=== PATIENT | female | born 1990 | race Caucasian/White ===

== ENCOUNTER 2019-12-03 09:32 | Day surgery (SDC) | payer BC ==
[~2019-12-03 09:32] MED LIST: Midazolam 1 MG/ML 2 ML SDV ONE; Propofol 200 MG/20 ML SDV ONE; fentaNYL 100 MCG/2 ML SDV ONE
[2019-12-03] MEDS ORDERED: Dextrose 5%-Lactated Ringers 1,000 ML IV SCH (10:45)
[2019-12-03] MEDS ORDERED: Glycopyrrolate 0.2 MG/ML 2 ML SDV IVPUSH ONE (11:00)
[2019-12-03 12:33] VITALS: BP 97/65; PULSE 89
--- NOTE | 2019-12-10 10:10 | OR ---
DATE OF PROCEDURE: 12/03/2019 SURGEON: Claude Restrepo MD PREOPERATIVE DIAGNOSIS: Probable gastroesophageal reflux disease along with upper abdominal discomfort. POSTOPERATIVE DIAGNOSES: 1. Large hiatal hernia (5 cm) with ulcerated gastroesophageal reflux disease. 2. Mild antral gastritis. OPERATIVE PROCEDURES: Esophagogastroduodenoscopy with: 1. Biopsies of esophagogastric junction for histologic evaluation. 2. Biopsies of antrum for CLOtest. ANESTHESIA: IV sedation. INDICATIONS FOR PROCEDURE: This is a 29-year-old female presenting with worsening reflux- type symptoms along with some postprandial upper abdominal pain. Plan is to proceed with upper GI endoscopy with biopsies as indicated. Potential risks including bleeding and perforation were discussed, and the patient wishes to proceed. DETAILS OF PROCEDURE: The patient was taken to the operating room, and after being placed in a left lateral decubitus position, IV sedation was administered, after which the upper GI endoscope was passed orally through the length of the esophagus and into the stomach with retroflexion view of the fundus, and thereafter through the pyloric channel and into the proximal duodenum. Findings included normal hypopharynx, larynx, upper esophageal sphincter, esophageal body. At the EG junction, there was quite a large hiatal hernia measuring around 5 cm with 3 linear erosions extending upward above the esophagogastric junction line. These are covered presently with some fibrinous exudate. No bleeding was seen. Otherwise, there was no stricturing or gross evidence of neoplasia. Within the stomach, there was a small amount of retained bile with some patchy redness in the antrum. Pylorus, pyloric channel, and duodenum to the junction of the third and fourth portions were unremarkable. At this point, biopsies were obtained from the antrum and sent for CLOtest for H pylori. Multiple biopsies were then obtained from esophagogastric junction, sent for histologic evaluation. Minimal bleeding from the biopsy sites was seen and the procedure was then concluded. At this point, we will move the patient's omeprazole dose up to 20 mg b.i.d. from a once a day dosing schedule, and we will see her back in the clinic to discuss treatment options. If the reflux symptoms become refractory to medical management, the two general options would be Eve fundoplication or gastric bypass. The latter would probably be preferable given the weight of 242 pounds and relatively poor efficacy both in the short and long-term with a Eve fundoplication in someone who is otherwise morbidly obese. We will see the patient back in clinic to discuss those options. Claude Restrepo MD /[id number]
== END 2019-12-03 12:53 | disposition home or self-care (01) ==
LOC: JP.SDS 09:32
PROVIDERS: ATTEND Surgery
DX: K29.70 Gastritis, unspecified, without bleeding (principal); K25.9 Gastric ulcer, unspecified as acute or chronic, without hemorrhage or perforation; K44.9 Diaphragmatic hernia without obstruction or gangrene; K21.9 Gastro-esophageal reflux disease without esophagitis
CPT/HCPCS: 43239; 87081; J2250; J2704; J3010; J3490; J7121; 88305

== ENCOUNTER 2020-11-25 08:20 | Inpatient (IN) | payer BC ==
[~2020-11-25 08:20] MED LIST changes: +Dexamethasone 4 MG/ML SDV ONE; +Glycopyrrolate 0.2 MG/ML 5 ML MDV ONE; +Neostigmine Methylsulfate 1 MG/ML 5 ML Syringe ONE; +Ondansetron 4 MG/2 ML SDV ONE; +Rocuronium 50 MG/5 ML Vial ONE; +Succinylcholine 200 MG/10 ML MDV ONE; +cefOXitin 2 GM Vial ONE; -fentaNYL 100 MCG/2 ML SDV ONE; +fentaNYL 250 MCG/5 ML SDV ONE
[2020-11-25] MEDS ORDERED: Scopolamine 1.5 MG Transdermal Patch TOP ONE (09:00)
[2020-11-25] MEDS ORDERED: Acetaminophen 500 MG Tab PO ONE (09:00)
[2020-11-25] MEDS ORDERED: Celecoxib 200 MG Cap PO ONE (09:00)
[2020-11-25] MEDS ORDERED: Dextrose 5%-Lactated Ringers 1,000 ML IV SCH ×2 (09:00→16:30)
[2020-11-25] MEDS ORDERED: cefOXitin 2 GM in Sodium Chloride 0.9% 50 ML IV ONE (10:30)
[2020-11-25] MEDS ORDERED: Magnesium Sulfate 3 GM in Sodium Chloride 0.9% 100 ML IV SCH (10:45)
[2020-11-25] MEDS ORDERED: Magnesium Sulfate 3.2 GM in Sodium Chloride 0.9% 250 ML IV ONE (10:45)
[2020-11-25] MEDS ORDERED: Ketamine 500 MG/5 ML MDV IV SCH (10:45)
[2020-11-25] MEDS ORDERED: SODIUM CHLORIDE 0.9% IV SCH (10:45)
[2020-11-25] MEDS ORDERED: KETAMINE IV SCH (10:45)
[2020-11-25] MEDS ORDERED: fentaNYL 250 MCG/5 ML SDV ONE (14:16)
[2020-11-25] MEDS ORDERED: HYDROmorphone/Normal Saline 15 MG/30 ML PCA IV PRN (14:28)
[2020-11-25] MEDS ORDERED: Naloxone 0.4 MG/ML SDV IVPUSH PRN (14:28)
[2020-11-25] MEDS ORDERED: Rocuronium 50 MG/5 ML Vial ONE (14:43)
[2020-11-25] MEDS ORDERED: Lactated Ringers 1,000 ML ONE (14:52)
[2020-11-25] MEDS ORDERED: Cyclobenzaprine 10 MG Tab PO PRN (16:29)
[2020-11-25] MEDS ORDERED: Acetaminophen 500 MG Tab PO PRN (17:00)
[2020-11-25] MEDS ORDERED: Labetalol 20 MG/4 ML Syringe IVPUSH PRN (17:00)
[2020-11-25] MEDS ORDERED: Naloxone 0.4 MG/ML SDV IV PRN (17:00)
[2020-11-25] MEDS ORDERED: Metoclopramide 10 MG/2 ML SDV IVPUSH PRN (17:00)
[2020-11-25] MEDS ORDERED: Calcium Gluconate 10% 1 GM/10 ML SDV IVPUSH PRN (17:00)
[2020-11-25] MEDS ORDERED: diphenhydrAMINE 50 MG/ML SDV IVPUSH PRN (17:00)
[2020-11-25] MEDS ORDERED: Ondansetron 4 MG/2 ML SDV IVPUSH PRN (17:00)
[2020-11-25] MEDS ORDERED: Pantoprazole 40 MG Vial IVPUSH SCH (17:00)
[2020-11-25] MEDS: Acetaminophen 500 MG Tab PO SCH (17:18)
[2020-11-25] MEDS: MVI, Adult with Vitamin K 10 ML, Thiamine 200 MG, Zinc/Copper/Manganese/Selenium 1 ML i... IV SCH ×4 (17:41)
[2020-11-25] MEDS: cefOXitin 2 GM in Sodium Chloride 0.9% 50 ML IV SCH (19:56)
[2020-11-25] MEDS: Heparin Sodium 5,000 Units/ML Vial SUBCUT SCH (20:54)
[2020-11-26] MEDS: cefOXitin 2 GM in Sodium Chloride 0.9% 50 ML IV SCH ×4 (01:27→19:48)
[2020-11-26] MEDS: Acetaminophen 500 MG Tab PO SCH ×3 (01:27→16:05)
[2020-11-26] MEDS ORDERED: Iopamidol 612 MG/ML 50 ML SDV PO STA (03:37)
[2020-11-26] MEDS ORDERED: Ondansetron 4 MG Tab.DIS PO PRN (06:56)
[2020-11-26] MEDS ORDERED: Dextrose 5%-Lactated Ringers 1,000 ML IV SCH (07:00)
--- NOTE | 2020-11-26 07:50 | PN ---
DATE OF SERVICE: 11/26/2020 SUBJECTIVE: Alejandrina is postop day #1. She was unable to void last evening, so her Ramirez catheter was put in. Her vital signs have been stable. She did have a temp max at 0130 at 100. Pain is controlled with Dilaudid SPORTS PSYCHOLOGIST. Oral intake 120, urine output 1200. CHAKA drain put out 90 mL of a light red drainage. REVIEW OF SYSTEMS: Remainder of review of systems negative for any pertinent positives and negatives. OBJECTIVE: GENERAL: Alejandrina Chaparro is a pleasant 30-year-old female. VITAL SIGNS: TPR is 100 at 0130, 110, 12. Blood pressure is 131/64. HEENT: Negative. NECK: Supple. HEART: Regular rate and rhythm. LUNGS: Clear. ABDOMEN: Dressings dry and intact. CHAKA drain intact as above. Abdominal binder is on. EXTREMITIES: Without peripheral edema. ASSESSMENT: Diagnostic laparoscopy with: 1. Repair of paraesophageal diaphragmatic hernia with mesh. 2. Partial gastrectomy with Ash-en-Y gastrojejunostomy. 3. Small bowel resection. 4. Needle liver biopsy. POSTOPERATIVE DIAGNOSES: 1. Gastroesophageal reflux disease refractory to medical management with large paraesophageal diaphragmatic hernia. 2. Separate gastric cardia devascularization and de-sterilization after reduction of segment of gastric. 3. Segment of small bowel requiring resection for strictureplasty forming tension at the gastrojejunostomy. 4. Marked hepatomegaly. 5. Date of procedure: 11/25/2020. Surgeon: Claude Restrepo MD. PLAN: 1. Leave Ramirez catheter in today due to inability to urinate. 2. Flomax 0.4 mg b.i.d. today only. 3. Remove Ramirez catheter, 11/27/2020, at 0400. 4. Step 2 gastric bypass diet without cereal. 5. Discontinue SPORTS PSYCHOLOGIST and continuous pulse ox. 6. Dilaudid 2 mg q.4 hours p.r.n. pain. 7. Continue ambulation and use of incentive spirometer. 8. We will evaluate p.r.n., in a.m. Kristi Contreras PA-C /[id number]
[2020-11-26] MEDS: Heparin Sodium 5,000 Units/ML Vial SUBCUT SCH ×2 (08:27→19:48)
[2020-11-26] MEDS: Tamsulosin 0.4 MG Cap.ER PO SCH ×2 (08:27→17:06)
[2020-11-26] MEDS: Celecoxib 200 MG Cap PO SCH ×3 (08:27→20:03)
[2020-11-26] MEDS: SCOPOLAMINE PATCH CHECK TOP SCH (08:28)
--- NOTE | 2020-11-26 09:48 | CR ---
UGI Limited HISTORY: Postbariatric surgery FINDINGS: Patient swallowed water-soluble contrast. Upright views of the abdomen show no evidence of extravasation or obstruction. There is a surgical drain in the left upper quadrant. IMPRESSION: Status post bariatric surgery No extravasation or obstruction seen
[2020-11-26] MEDS: HYDROmorphone 2 MG Tab PO PRN ×3 (10:07→19:43)
[2020-11-26] MEDS: hydrOXYzine HCL 100 MG/2 ML SDV IM PRN ×2 (13:05→17:05)
--- NOTE | 2020-11-26 14:54 | PCM.EKG ---
#1 Interpretation EKG Date: 11/25/20 Time: 08:55 Rhythm: NSR Rate (Beats/Min): 80 [place]: Normal P-Wave: Present QRS: Normal ST-T: Normal QT: Normal Comparison: NA - No Prior EKG EKG Interpretation Comments: Normal ECG
[2020-11-26] MEDS: MVI, Adult with Vitamin K 10 ML, Thiamine 200 MG, Zinc/Copper/Manganese/Selenium 1 ML i... IV SCH ×4 (16:03)
[2020-11-26] MEDS: Pantoprazole 40 MG Delayed-Release Granules 1 Packet PO SCH (16:12)
[2020-11-27] MEDS: Acetaminophen 500 MG Tab PO SCH ×3 (01:18→16:27)
[2020-11-27] MEDS: cefOXitin 2 GM in Sodium Chloride 0.9% 50 ML IV SCH ×3 (01:19→13:18)
[2020-11-27] MEDS: HYDROmorphone 2 MG Tab PO PRN ×2 (01:23→07:22)
[2020-11-27] MEDS: Heparin Sodium 5,000 Units/ML Vial SUBCUT SCH ×2 (07:13→20:59)
[2020-11-27] MEDS: Celecoxib 200 MG Cap PO SCH ×2 (08:20→20:59)
[2020-11-27] MEDS: Bisacodyl 5 MG Tab PO SCH ×2 (08:20→20:59)
[2020-11-27] MEDS: Docusate Sodium 100 MG Cap PO SCH ×2 (08:20→20:59)
[2020-11-27] MEDS: SCOPOLAMINE PATCH CHECK TOP SCH (08:21)
[2020-11-27] MEDS ORDERED: Cyanocobalamin (Vitamin B12) 1,000 MCG/ML SDV IM ONE (09:00)
[2020-11-27] MEDS: hydrOXYzine HCl 25 MG Tab PO PRN ×2 (10:14→17:06)
--- NOTE | 2020-11-27 11:00 | PN ---
DATE OF SERVICE: 11/27/2020 SUBJECTIVE: Alejandrina is postop day #2. Vital signs have been stable. Oral intake was 620. Urine output 3424. Her catheter was removed at 0400 this a.m. and she voided 600 mL at 0659. CHAKA drain put out 70 mL of a light red drainage. She was having problems with pain control last evening. Her Dilaudid was increased to 4 mg. she is quite sleepy. REVIEW OF SYSTEMS: Remainder of review of systems negative for any pertinent positives and negatives. OBJECTIVE: GENERAL: Alejandrina is a pleasant 30-year-old female, quite sleepy as stated above. VITAL SIGNS: Temperature max on 11/26/2020 at 1827 was 100.3. It remained 99.2 to 99.5 on her next 3 set of vitals. HEENT: Negative. NECK: Supple. HEART: Regular rate and rhythm. LUNGS: Clear. ABDOMEN: Dressings dry and intact. CHAKA drain intact. Abdominal binder on. EXTREMITIES: Without peripheral edema. ASSESSMENT: Diagnostic laparoscopy with: 1. Repair of paraesophageal diaphragmatic hernia with mesh. 2. Partial gastrectomy with Ash-en-Y gastrojejunostomy. 3. Small bowel resection. 4. Needle liver biopsy. POSTOPERATIVE DIAGNOSES: 1. Gastroesophageal reflux disease refractory to medical management with large paraesophageal diaphragmatic hernia. 2. Separate gastric cardia devascularization and de-serialization after reduction of segment of gastric. 3. Segment of small bowel requiring resection for strictureplasty forming tension at the gastrojejunostomy. 4. Marked hepatomegaly. 5. Date of procedure: 11/25/2020. Surgeon: Claude Resrtepo MD. PLAN: 1. Energy protocol reviewed with patient and encouraged to try protocol medications before the Dilaudid. 2. Atarax 50 mg q.4 hours p.r.n. pain, use this before Dilaudid. 3. Dulcolax 2 tabs p.o. b.i.d. 4. Colace 100 mg p.o. b.i.d. Encouraged to drink 1 med cup q.20 minutes or 3 per hour. Nursing staff has already set that up. Continue ambulation and use of incentive spirometer to prevent temperature from getting any higher. 5. We will evaluate p.r.n. or in a.m. Kristi Contreras PA-C /[id number]
[2020-11-27] MEDS: Pantoprazole 40 MG Delayed-Release Granules 1 Packet PO SCH (16:27)
[2020-11-28] MEDS: Acetaminophen 500 MG Tab PO SCH ×2 (01:58→09:26)
[2020-11-28 07:17] VITALS: BP 103/55; PULSE 86
[2020-11-28] MEDS: Heparin Sodium 5,000 Units/ML Vial SUBCUT SCH (07:26)
[2020-11-28] MEDS ORDERED: Magnesium Hydroxide 400 MG/5 ML Susp 30 ML Cup PO ONE (08:45)
[2020-11-28] MEDS: Celecoxib 200 MG Cap PO SCH (09:26)
[2020-11-28] MEDS: Docusate Sodium 100 MG Cap PO SCH (09:26)
[2020-11-28] MEDS: Bisacodyl 5 MG Tab PO SCH (09:26)
[2020-11-28] MEDS: HYDROmorphone 2 MG Tab PO PRN ×2 (09:26→09:49)
--- NOTE | 2020-12-02 08:42 | DISCH ---
FINAL DIAGNOSES: 1. Large paraesophageal diaphragmatic hernia. 2. Segment of gastric cardia devascularized after reduction of diaphragmatic hernia. 3. Segment of small bowel requiring resection for satisfactorily forming tension-free gastrojejunostomy. 4. Marked hepatomegaly. OPERATIVE PROCEDURES: Done on 11/25/2020, diagnostic laparoscopy with: 1. Repair of paraesophageal diaphragmatic hernia with mesh. 2. Partial gastrectomy with Ash-en-Y gastrojejunostomy. 3. Small bowel resection. 4. Needle liver biopsy. SUMMARY: This 30-year-old female presenting with progressive worsening gastroesophageal reflux disease, noted to have active ulceration with proton pump inhibitor use, had large hiatal hernia on recent endoscopy. At the time of the operation, the hernia was identified and repaired. During the course of the reduction, there were dense adhesions between the area of herniation and the gastric cardia rendering this not useful for subsequent fundoplication. Given this, the hernia was repaired with mesh augmentation of the crural repair, and a partial gastrectomy performed with Ash-en-Y reconstruction. In order to obtain a tension-free gastrojejunostomy, some small bowel needed to be resected, and the patient was noted to have marked hepatomegaly and liver biopsy was obtained to establish the status of her liver pathology. Postoperatively, the patient has had no significant problems. She will be discharged home on a step-2 diet until first appointment which will be with Kristi Contreras at [facility] on 12/04/2020. Otherwise, she will be continuing her present home medications plus Tylenol 1 g q.6 hours p.r.n. and Dilaudid 2 mg p.o. q.4 hours p.r.n. pain. She will be instructed to stop the omeprazole once she has completed the Celebrex. /[id number]
--- NOTE | 2020-12-13 18:55 | OR ---
DATE OF PROCEDURE: 11/25/2020 SURGEON: Claude Restrepo MD PREOPERATIVE DIAGNOSIS: Gastroesophageal reflux disease refractory to medical management with large paraesophageal diaphragmatic hernia. POSTOPERATIVE DIAGNOSES: 1. Gastroesophageal reflux disease refractory to medical management with large paraesophageal diaphragmatic hernia. 2. Segment of gastric artery revascularized, status post reduction of diaphragmatic hernia. 3. Segment of small bowel requiring resection for satisfactorily forming a tension-free gastrojejunostomy. 4. Marked hepatomegaly. OPERATIVE PROCEDURES: Diagnostic laparoscopy with: 1. Repair of paraesophageal diaphragmatic hernia with mesh (34626). 2. Partial gastrectomy with Ash-en-Y gastrojejunostomy (08958). 3. Small bowel resection (88371). 4. Jorge-Cut needle liver biopsy (71069). ANESTHESIA: General. GIFT MANAGER: Kristi Contreras PA-C INDICATIONS FOR PROCEDURE: This is a 30-year-old female presenting with progressively worsening gastroesophageal reflux disease. Recent endoscopy showed quite a very large hiatal hernia. The plan is to proceed with repair laparoscopically, if necessary open repair of this. She is aware there is some possibility of needing a resectional procedure based on intraoperative findings. Potential risks including bleeding, infection, leaks from various GI tract closures, problems with persistent or recurrent reflux, or injury to the adjacent viscera were all reviewed, and the patient wishes to proceed. DETAILS OF PROCEDURE: The patient was taken to the operating room and after general endotracheal anesthesia was induced, the patient was placed in a lithotomy position, and the abdomen prepped and draped. 15 cm inferior and 5 cm left of the xiphoid process, transverse incision was made, and the peritoneal cavity entered under direct vision with an Optiview trocar, inflated to 15 mmHg pressure with CO2. Laparoscope was then reinserted. No underlying trocar insertion site injuries were seen. Bilateral transversus abdominis plane blocks were placed. The patient had been quite obese with a BMI of 39, was noted to have a quite marked hepatomegaly, and gross fatty infiltration of liver. Given this, Jorge-Cut needle biopsies were obtained from left lobe of liver. Minimal bleeding from the biopsy sites was controlled with electrocautery. At this point, the liver was retracted anteriorly. The patient was noted, as expected, to have very large paraesophageal diaphragmatic hernia. As this was reduced, there was quite a bit in the way of dense adhesions posteriorly as well as on the left lateral aspect of the prolapsed stomach. As this was reduced, significant amount of the stomach was noted to be devascularized and/or deserosalized. It was felt that a fundoplication type of procedure would not be an acceptable approach in this case. At this point, the hernia sac was further dissected downward, and a retroesophageal window was created. Posterior crural repair was then accomplished with 0 Ethibond sutures reinforced with PTFE pledgets and then reinforced with Phasix ST mesh cut in a horseshoe type configuration, laid across the crural repair, and clipped to the crura on each side with titanium tacking screws. At this point, the lesser omental tissue just below the gastroesophageal junction was incised. This allowed dissection behind the uppermost stomach just below the esophagogastric junction which was divided with a ANAI purple load. One additional firing was required to complete the staple line at that level, and at that point, the proximal staple line appeared to be satisfactory. The deserosalized portion of stomach that was then resected with additional black and purple ANAI loads, and the stomach specimen subsequently removed from the field. At this point, the transverse colon was retracted anteriorly, and the small bowel was identified at the ligament of Treitz and traced down 75 cm distal to that point where it was divided with a ANAI stapler, and the small bowel was then traced out additional 125 cm where the [id number] enteroenterostomy was accomplished with internal firing of the Endo ANAI 60 mm stapler. Common opening was then closed transversely with the same stapler and the angles anastomosed. Mesentery defect was approximated with some 3-0 Vicryl stitch along with fibrin sealant. As one brought up the small bowel to the area of the divided gastric cardia, it was noted to be associated with foreshortening of mesentery. Given this, segment of small bowel was then was resected which allowed then mobilization of the Ash limb up to that level without significant tension. The anvil of a 25 mm EEA stapler was attached to [place] sump type tube, and the latter was brought down through the mouth, taken out through a small opening in the gastric pouch allowing the anvil likewise to be pulled down within the gastric pouch. Divided end of the Ash limb was then opened, and the main body of EEA stapler passed several centimeters into the lumen of small bowel, brought up the anvil, and united with it, thus creating the gastrojejunostomy. Double donuts of mucosa were noted within it upon removal of stapler, and the small bowel was closed off with a vascular staple line. Gastrojejunostomy was reinforced with some 3-0 Vicryl seromuscular stitch along with fibrin sealant. A leak test was accomplished with injection of air into the gastrojejunostomy while submerging it with an antibiotic-containing saline solution. No leaks were identified. A single Dickson-Bush drain was then taken out through the left lateral trocar site after delivery of the stomach and small bowel specimens, and this was then placed adjacent to the gastrojejunostomy from up there and from there up into the Ash limb. The fascia at the left lateral trocar site was somewhat related to the staple placement through it, and this was closed at the fascial level with 0 Vicryl stitch, and the remaining trocars were then removed, and peritoneal cavity deflated. Incisions were closed with 4-0 Vicryl skin stitch which was also used to fix the drain. The patient was taken to the recovery room in satisfactory condition. There were no evident complications. Physician assistant women's soccer coach, Kristi Contreras, played an essential role in assisting in this case, helping to position the patient, retract structures as needed, and as well as suturing and cutting sutures when indicated. Her presence improved patient safety and decreased operative time. Claude Restrepo MD Job #: [id number]
== END 2020-11-28 11:00 | disposition home or self-care (01) | DRG 220 ==
LOC: JP.SDS 08:20 → JP.SDSSCHI 08:20 → EDSTATUS 08:45 → JP.MS 15:00
PROVIDERS: ADMIT Surgery; ATTEND Surgery
PROC: 0BUT4JZ Supplement Diaphragm with Synthetic Substitute, Percutaneous Endoscopic Approach (ICD-10-PCS; principal; 2020-11-25)
PROC: 0D164ZA Bypass Stomach to Jejunum, Percutaneous Endoscopic Approach (ICD-10-PCS; 2020-11-25)
PROC: 0DB64ZZ Excision of Stomach, Percutaneous Endoscopic Approach (ICD-10-PCS; 2020-11-25)
PROC: 0DB84ZZ Excision of Small Intestine, Percutaneous Endoscopic Approach (ICD-10-PCS; 2020-11-25)
PROC: 0FB24ZX Excision of Left Lobe Liver, Percutaneous Endoscopic Approach, Diagnostic (ICD-10-PCS; 2020-11-25)
DX: K44.9 Diaphragmatic hernia without obstruction or gangrene (principal); K21.9 Gastro-esophageal reflux disease without esophagitis; F41.1 Generalized anxiety disorder; R16.0 Hepatomegaly, not elsewhere classified; G43.909 Migraine, unspecified, not intractable, without status migrainosus; E66.9 Obesity, unspecified; Z79.899 Other long term (current) drug therapy; Z68.41 Body mass index [BMI] 40.0-44.9, adult
CPT/HCPCS: 36415; 51702; 74240; 74240-26; 84703; 86850; 86900; 86901; 88304; 88307; 88313; 93005; 94762; A9270-GY; C1781; C9113; J0171; J0330; J0694; J1100; J1170; J1644; J2250; J2405; J2704; J2710; J2795; J3010; J3410; J3411; J3420; J3475; J3490; J7050; J7120; J7121; Q9967; U0002